=== PATIENT | female | born 1990 | race Asian ===

== ENCOUNTER 2024-01-31 18:36 | Emergency (ER) | payer BC ==
[~2024-01-31] VITALS: Ht 167.6 cm; Wt 61.2 kg
[2024-01-31 19:25] VITALS: BP_SYST 126; PULSE 79; RESP 18; TEMP 97.5; O2SAT 98
[2024-01-31] MEDS ORDERED: PSEU120T57 PO (20:45)
[2024-01-31] MEDS: PSEUDOEPHEDRINE HCL 30 MG TABLET PO ONE (21:05)
[2024-01-31 21:09] VITALS: BP_SYST 126; PULSE 79; RESP 18; TEMP 97.5; O2SAT 98
== END 2024-01-31 21:10 | disposition home or self-care (01) ==
LOC: SED 18:36
DX: J06.9 Acute upper respiratory infection, unspecified (principal); R09.81 Nasal congestion; R09.A1 Foreign body sensation, nose; Z79.899 Other long term (current) drug therapy
CPT/HCPCS: 99282